=== PATIENT | female | born 1995 | race Caucasian/White ===

== ENCOUNTER 2018-12-12 15:45 | Emergency (ER) | payer MEDICAID, OTHER ==
[2018-12-12 15:48] VITALS: BMI 17.6
[2018-12-12] MEDS ORDERED: Sodium Chloride 0.9% 1,000 ML IV STA (15:59)
--- NOTE | 2018-12-12 16:14 | ED PDOC ---
Arrival/HPI - General Chief Complaint: GI Problem Time Seen by Provider: 12/12/18 15:49 Historian: Patient - History of Present Illness Narrative History of Present Illness (Text): 12/12/18 17:11 23 y/o female with no significant PMH presents to the ED c/o abdominal pain x 4 hours. Associated nausea, vomiting, and diarrhea. Approx 8-9 episodes of nonbloody vomiting and diarrhea since onset of symptoms this morning. Abdominal pain is generalized and sharp, worse in RLQ and periumbilically. No recent antibiotic use, changes in diet, sick contacts, or travel. Denies fever, chills, chest pain, SOB, urinary symptoms, hematemesis, hematochezia, melena, back pain, vaginal bleeding or discharge, or any other associated symptoms. Past Medical History - Provider Review Nursing Documentation Reviewed: Yes - Infectious Disease Hx of Infectious Diseases: None - Psychiatric Hx Substance Use: No - Anesthesia Hx Anesthesia: No Family/Social History - Physician Review Nursing Documentation Reviewed: Yes Family/Social History: No Known Family HX Smoking Status: Never Smoked Hx Alcohol Use: No Hx Substance Use: No Allergies/Home Meds Allergies/Adverse Reactions: Allergies No Known Allergies Allergy (Verified 12/12/18 15:53) Home Medications: Home Meds Medication Instructions Recorded Confirmed No Known Home Med 12/12/18 12/12/18 Review of Systems - Review of Systems Constitutional: Normal Eyes: Normal ENT: Normal. absent: Sore Throat, Sinus Congestion Respiratory: Normal. absent: SOB, Cough Cardiovascular: Normal. absent: Chest Pain, Palpitations, Syncope Gastrointestinal: Abdominal Pain, Stool Changes, Diarrhea, Nausea, Vomiting, Appetite Changes. absent: Hematochezia, Hematemesis Genitourinary Female: Normal. absent: Dysuria, Frequency, Hematuria, Vaginal Bleeding, Vaginal Discharge Musculoskeletal: Normal. absent: Back Pain, Neck Pain Skin: Normal. absent: Rash Neurological: Normal. absent: Headache, Dizziness Physical Exam Vital Signs Reviewed: Yes Vital Signs Temp Pulse Resp BP Pulse Ox 12/12/18 15:58 97.8 F 75 18 100/74 99 Temperature: Afebrile Blood Pressure: Normal Pulse: Regular Respiratory Rate: Normal Appearance: Positive for: Well-Appearing, Non-Toxic, Comfortable Pain Distress: None Mental Status: Positive for: Alert and Oriented X 3 - Systems Exam Head: Present: Atraumatic, Normocephalic Pupils: Present: PERRL Extroacular Muscles: Present: EOMI Conjunctiva: Present: Normal Mouth: Present: Moist Mucous Membranes Neck: Present: Normal Range of Motion. No: Meningeal Signs Respiratory/Chest: Present: Clear to Auscultation, Good Air Exchange. No: Respiratory Distress, Accessory Muscle Use Cardiovascular: Present: Regular Rate and Rhythm, Normal S1, S2, Peripheal Pulses Present Abdomen: Present: Tenderness (generalized, worse in RLQ, periumbilically ), Normal Bowel Sounds, McBurney's Point Tender. No: Distention, Peritoneal Signs, Rebound Back: Present: Normal Inspection. No: CVA Tenderness Upper Extremity: Present: Normal Inspection, Normal ROM, NORMAL PULSES, Neurovascularly Intact, Capillary Refill < 2s. No: Cyanosis, Edema, Temperature Abnormalties Lower Extremity: Present: Normal Inspection, NORMAL PULSES, Normal ROM, Neurovascularly Intact, Capillary Refill < 2 s. No: Edema, Temperature Abnormalties Neurological: Present: GCS=15, CN II-XII Intact, Speech Normal, Motor Func Grossly Intact, Normal Sensory Function, Gait Normal Skin: Present: Warm, Dry, Normal Color. No: Rashes Psychiatric: Present: Alert, Oriented x 3, Normal Insight, Normal Concentration, Normal Affect, Normal Mood Medical Decision Making ED Course and Treatment: 12/12/18 17:01 Initial Plan: * CBC, CMP * Coags * Lipase * UA * IVF * Pepcid * Zofran * Toradol Father and patient would like to wait for bloodwork and re-evaluate before pursuing imaging. 18:11 Bloodwork reviewed, significant for leukocytosis at 15.9 with left shift. UA negative Patient reports improvement in symptoms with medication. Spoke with father and patient, advised CT with PO and IV contrast. Father and patient agree, CT ordered to rule out appendicitis. 19:30 Patient care endorsed to RELL Balbuena, pending CT Abd/Pelvis with PO and IV contrast, Reassessment and Disposition. Patient informed of change in provider. Resting comfortably in stretcher in NAD, VSS at this time. - Lab Interpretations Lab Results: 12/12/18 16:55 12/12/18 16:55 Lab Results 12/12/18 16:55: Sodium 141, Potassium 4.2, Chloride 105, Carbon Dioxide 21, Anion Gap 19, BUN 14, Creatinine 0.5 L, Est GFR ( Amer) > 60, Est GFR (Non-Af Amer) > 60, Random Glucose 88, Calcium 10.2, Phosphorus 4.0, Magnesium 2.3 H, Total Bilirubin 0.6, AST 27, ALT 11, Alkaline Phosphatase 76, Total Protein 9.2 H, Albumin 5.3 H, Globulin 3.9, Albumin/Globulin Ratio 1.4, Lipase 1 48 12/12/18 16:55: Urine Color Yellow, Urine Appearance Clear, Urine pH 5.5, Ur Specific [place] >= 1.030, Urine Protein Negative, Urine Glucose (UA) Negative, Urine Ketones Negative, Urine Blood Negative, Urine Nitrate Negative, Urine Bilirubin Negative, Urine Urobilinogen 0.2, Ur Leukocyte Esterase Negative 12/12/18 16:55: PT 13.4 H, INR 1.21, APTT 28.2 12/12/18 16:55: WBC 15.9 H, RBC 4.88, Hgb 14.6, Hct 44.5, MCV 91.2, MCH 29.9, MCHC 32.8, RDW 13.2, Plt Count 339, MPV 10.7, Neut % (Auto) 89.9 H, Lymph % (Auto) 4.9 L, [place] % (Auto) 4.0, Eos % (Auto) 1.0 L, Baso % (Auto) 0.2, Lymph # (Auto) 0.8 L, [place] # (Auto) 0.6, Eos # (Auto) 0.0, Baso # (Auto) 0.03, Absolute Neuts (auto) 14.45 H, Neutrophils % (Manual) Pending, Lymphocytes % (Manual) Pending, Monocytes % (Manual) Pending I have reviewed the lab results: Yes - Medication Orders Current Medication Orders: Sodium Chloride (Sodium Chloride 0.9%) 1,000 mls @ 999 mls/hr IV .Q1H1M STA Stop: 12/12/18 16:59 Discontinued Medications Famotidine (Pepcid) 20 mg PO STAT STA Stop: 12/12/18 16:00 Ketorolac Tromethamine (Toradol) 15 mg IVP STAT STA Stop: 12/12/18 16:00 Ondansetron HCl (Zofran Inj) 4 mg IVP STAT STA Stop: 12/12/18 16:00 - Transfer of Care Patient signed out to Dr:: Ofelia Balbuena PA-C Pending Radiology Studies:: CT Abd/Pelvis with IV and PO contrast Other: Reassessment and Disposition Disposition/Present on Arrival - Present on Arrival Any Indicators Present on Arrival: No History of DVT/PE: No History of Uncontrolled Diabetes: No Urinary Catheter: No History of Decub. Ulcer: No History Surgical Site Infection Following: None - Disposition Have Diagnosis and Disposition been Completed?: No Diagnosis: Abdominal pain, Nausea vomiting and diarrhea Disposition Time: 19:30 Patient Problems: Current Active Problems Problem Status Onset Abdominal pain Acute Nausea vomiting and diarrhea Acute Condition: STABLE Forms: [employer] (Slovenian)
[2018-12-12 17:15] LABS: PH,URINE 5.5 (4.7-8.0); URINE BILIRUBIN NEGATIVE (NEGATIVE); URINE BLOOD NEGATIVE (NEGATIVE); URINE GLUCOSE (UA) NEGATIVE (NEGATIVE); URINE LEUKOCYTE ESTERASE NEGATIVE Leu/uL (NEGATIVE); URINE UROBILINOGEN 0.2 E.U./dL (<1 E.U./dL)
[2018-12-12 17:17] LABS: URINE APPEARANCE CLEAR (CLEAR); URINE COLOR YELLOW (YELLOW); URINE PROTEIN NEGATIVE mg/dL (<30 mg/dL)
[2018-12-12 17:19] LABS: INR 1.21; PARTIAL THROMBOPLASTIN TIME 28.2 Seconds (26.9-38.3); PROTHROMBIN TIME 13.4 SECONDS (9.4-12.5)
[2018-12-12 17:25] LABS: ALB/GLOB RATIO 1.4 (1.1-1.8); ALBUMIN 5.3 g/dL (3.0-4.8); ALT/SGPT 11 U/L (7-56); AST/SGOT 27 U/L (14-36); BLOOD UREA NITROGEN 14 mg/dL (7-21); CALCIUM 10.2 mg/dL (8.4-10.5); GFR NON-AFRICAN AMERICAN > 60; LIPASE 148 U/L (23-300)
[2018-12-12 17:53] LABS: BASO # 0.03 K/mm3 (0.0-2.0); BASO % 0.2 % (0.0-3.0); HEMOGLOBIN 14.6 g/dL (12.0-16.0); LYMPH # 0.8 (1.2-3.4); LYMPH % 4.9 % (22.0-35.0); MEAN CELL VOLUME 91.2 fl (80.0-105.0); MEAN CORPUSCULAR HEMOGLOBIN 29.9 pg (25.0-35.0); MEAN CORPUSCULAR HGB CONC 32.8 g/dl (31.0-37.0); MEAN PLATELET VOLUME 10.7 fl (7.0-11.0); MONO # 0.6 (0.1-0.6); PLATELET COUNT 339 10^3/uL (120.0-450.0); RBC 4.88 10^6/uL (3.5-6.1); RED CELL DISTRIBUTION WIDTH 13.2 % (11.5-14.5); WHITE BLOOD COUNT 15.9 10^3/uL (4.5-11.0)
[2018-12-12 18:16] VITALS: O2SAT 100
[2018-12-12] MEDS ORDERED: Iohexol 240 (50 ml) ONE (18:28)
[2018-12-12 18:30] LABS: LYMPHOCYTE 6 % (22.0-35.0); MONOCYTE 4 % (1.0-6.0); NEUTROPHIL 90 % (50.0-70.0)
[2018-12-12 18:31] LABS: HYPOCHROMIA 1+; PLATELET ESTIMATE NORMAL (NORMAL); ROULEAU 2+; TOXIC GRANULATION 1+
[2018-12-12] MEDS ORDERED: Iohexol 300 100 ML IJ ONE (20:48)
[2018-12-12 21:17] VITALS: TEMP 98.2
--- NOTE | 2018-12-12 22:01 | ED PDOC ---
Physical Exam Vital Signs Reviewed: Yes Vital Signs Temp Pulse Resp BP Pulse Ox 12/12/18 21:16 98.2 F 94 H 18 101/62 100 12/12/18 18:15 97.8 F 87 18 105/75 100 12/12/18 15:58 97.8 F 75 18 100/74 99 Temperature: Afebrile Blood Pressure: Normal Pulse: Regular Respiratory Rate: Normal Medical Decision Making ED Course and Treatment: 12/12/18 19:30 Case endorsed to me by RELL Garcia. Patient's lab results were reviewed, showing an elevated white count. CT was ordered to rule out Appendicitis. At this time, patient is starting to drink for po contrast. 12/12/18 21:45 On reevaluation, patient returned from CT and reports her pain is controlled at this time, denies nausea and is laying in bed comfortably with no acute distress. CT results pending. 12/12/18 22:06 EXAM: CT Abdomen and Pelvis with IV contrast CLINICAL HISTORY: R/o appendicitis TECHNIQUE: Axial computed tomography images of the abdomen and pelvis with intravenous contrast. 206.65 mGy-cm CONTRAST: With; 33OZ OMNI MIX & OMNI 350 100 ml COMPARISON: None provided. FINDINGS: LUNG BASES: The lung bases appear clear. No pleural effusions are seen. LIVER: Unremarkable. GALLBLADDER AND BILE DUCTS: The gallbladder appears within normal limits. No radioopaque gallstones are seen. No biliary ductal dilatation is evident. PANCREAS: Unremarkable. SPLEEN: Unremarkable. ADRENAL GLANDS: Unremarkable. KIDNEYS, URETERS, AND BLADDER: The kidneys appear within normal limits. There is no hydronephrosis or hydroureter. No urinary calculi are seen. STOMACH AND BOWEL: Thick walled fluid filled duodenum and loops of jejunum as well as ileum compatible with enteritis. Thick walled fluid filled colon is noted with involvement of all segments compatible with diffuse pancolitis. APPENDIX: Appendix is not identified. There is no evidence of acute appendicitis. PERITONEUM: No free fluid. No free air. LYMPH NODES: No lymphadenopathy is evident. REPRODUCTIVE: Unremarkable as visualized. VASCULATURE: No evidence of abdominal aortic aneurysm. BONES: No aggressive appearing osseous lesion. No acute osseous pathology evident. IMPRESSION: Enterocolitis. Infectious and inflammatory etiologies are considered. Appendix is not identified. There is no evidence of acute appendicitis. Electronically signed on Dec 12, 2018 9:52:00 PM EDT by: Tha Logan M.D., N[place] Certified By [facility] Fellowship Trained MRI and CT Specialist 12/12/18 22:15 On reevaluation, patient remains awake alert and oriented 3 in no acute distress, patient is smiling, is in good spirits, states that she feels ready to go home. Abdomen soft and nontender, no rebound or guarding. CT results d/w the patient and her family. Cipro and flagyl IV ordered. Advised to follow up with primary care physician in 1-2 days without fail. Advised to take medication as prescribed. Return to the emergency room at any time for any new or worsening symptoms. Patient states she fully agrees with and understands discharge instructions. States that she agrees with the plan and disposition. Verbalized and repeated sierra sandoval instructions and plan. I have given the patient opportunity to ask any additional questions. - Lab Interpretations Lab Results: PT 13.4 SECONDS (9.4-12.5) H 12/12/18 16:55 INR 1.21 12/12/18 16:55 APTT 28.2 Seconds (26.9-38.3) 12/12/18 16:55 Total Bilirubin 0.6 mg/dL (0.2-1.3) 12/12/18 16:55 AST 27 U/L (14-36) 12/12/18 16:55 ALT 11 U/L (7-56) 12/12/18 16:55 Alkaline Phosphatase 76 U/L (38-126) 12/12/18 16:55 Total Protein 9.2 g/dL (5.8-8.3) H 12/12/18 16:55 Albumin 5.3 g/dL (3.0-4.8) H 12/12/18 16:55 Globulin 3.9 gm/dL 12/12/18 16:55 Albumin/Globulin Ratio 1.4 (1.1-1.8) 12/12/18 16:55 Lipase 148 U/L (23-300) 12/12/18 16:55 Urine Color Yellow (YELLOW) 12/12/18 16:55 Urine Appearance Clear (CLEAR) 12/12/18 16:55 Urine pH 5.5 (4.7-8.0) 12/12/18 16:55 Ur Specific [place] >= 1.030 (1.005-1.035) 12/12/18 16:55 Urine Protein Negative mg/dL (<30 mg/dL) 12/12/18 16:55 Urine Glucose (UA) Negative mg/dL (NEGATIVE) 12/12/18 16:55 Urine Ketones Negative mg/dL (NEGATIVE) 12/12/18 16:55 Urine Blood Negative (NEGATIVE) 12/12/18 16:55 Urine Nitrate Negative (NEGATIVE) 12/12/18 16:55 Urine Bilirubin Negative (NEGATIVE) 12/12/18 16:55 Urine Urobilinogen 0.2 E.U./dL (<1 E.U./dL) 12/12/18 16:55 Ur Leukocyte Esterase Negative Sybil/uL (NEGATIVE) 12/12/18 16:55 - RAD Interpretation Radiology Orders: 12/12/18 18:05 ABD PELVIS PO & IV CONTRAST [CT] Stat - Medication Orders Current Medication Orders: Discontinued Medications Famotidine (Pepcid) 20 mg IVP STAT STA Stop: 12/12/18 17:04 Last Admin: 12/12/18 17:11 Dose: 20 mg IVP Administration Document 12/12/18 17:11 [place] (Rec: 12/12/18 17:12 [id number] Charges for Administration # of IVP Administrations 1 Sodium Chloride (Sodium Chloride 0.9%) 1,000 mls @ 999 mls/hr IV .Q1H1M STA Stop: 12/12/18 16:59 Last Admin: 12/12/18 17:11 Dose: 999 mls/hr eMAR Start Stop Document 12/12/18 17:11 LA (Rec: 12/12/18 17:11 [id number] Intravenous Solution Start Date 12/12/18 Start Time 17:11 End Date 12/12/18 End time 18:12 Total Infusion Time 61 Ketorolac Tromethamine (Toradol) 15 mg IVP STAT STA Stop: 12/12/18 16:00 Last Admin: 12/12/18 17:12 Dose: 15 mg MAR Pain Assessment Document 12/12/18 17:12 LA (Rec: 12/12/18 17:12 [id number] Pain Reassessment Is this a pain reassessment? No Sleep Is patient sleeping during reassessment? No Presence of Pain Presence of Pain Yes Pain Scale Used Protocol: PSCALES Pain Scale Used Numeric Location Pain Location Body Site Abdomen IVP Administration Document 12/12/18 17:12 LA (Rec: 12/12/18 17:12 [id number] Charges for Administration # of IVP Administrations 1 Re-Assess: NATHALIE Pain Assessment Document 12/12/18 18:12 LA (Rec: 12/12/18 21:22 [place] [id number]) Pain Reassessment Is this a pain reassessment? Yes Sleep Is patient sleeping during reassessment? No Presence of Pain Presence of Pain Yes Description Intensity of Pain at present 2 Ondansetron HCl (Zofran Inj) 4 mg IVP STAT STA Stop: 12/12/18 16:00 Last Admin: 12/12/18 17:11 Dose: 4 mg IVP Administration Document 12/12/18 17:11 LA (Rec: 12/12/18 17:11 [id number] Charges for Administration # of IVP Administrations 1 - PA / WET PROCESS ASSISTANT HEAD MILLER / Resident Statement MD/DO has reviewed & agrees with the documentation as recorded. Disposition/Present on Arrival - Present on Arrival Any Indicators Present on Arrival: No History of DVT/PE: No History of Uncontrolled Diabetes: No Urinary Catheter: No History of Decub. Ulcer: No History Surgical Site Infection Following: None - Disposition Have Diagnosis and Disposition been Completed?: Yes Diagnosis: Abdominal pain, Nausea vomiting and diarrhea, Enterocolitis Disposition: HOME/ ROUTINE Disposition Time: 22:30 Patient Plan: Discharge Patient Problems: Current Active Problems Problem Status Onset Abdominal pain Acute Nausea vomiting and diarrhea Acute Enterocolitis Acute Condition: STABLE Discharge Instructions (ExitCare): Acute Abdomen (Belly Pain), Colitis (DC) Additional Instructions: Thank you for letting us take care of you today. You were treated for abdominal pain, enterocolitis. The emergency medical care you received today was directed at your acute symptoms. If you were prescribed any medication, please fill it and take as directed. It may take several days for your symptoms to resolve. Return to the Emergency Department if your symptoms worsen, do not improve, or if you have any other problems. Please contact your doctor (Dr. Wilson) in 2 days for re-evaluation and follow up. Bring any paperwork you were given at discharge with you along with any medications you are taking to your follow up visit. Our treatment cannot replace ongoing medical care by a primary care provider (PCP) outside of the emergency department. Thank you for allowing the [facility] team to be part of your care today. If you had a CT scan: Another Radiologist will review the ED overnight reading if any change in treatment is needed we will contact you. Prescriptions: Ciprofloxacin [Cipro] 500 mg PO BID #14 tab metroNIDAZOLE [Flagyl] 500 mg PO TID #21 tab Forms: [employer] (Italian), SCHOOL NOTE
[2018-12-12] MEDS ORDERED: Ciprofloxacin 400mg/200ml D5W 400 MG/200 ML BAG IVPB STA (22:13)
[2018-12-12] MEDS ORDERED: metroNIDAZOLE IV 500 mg/100 ml 500 MG/100 ML BAG IVPB STA (22:13)
[2018-12-13] MEDS ORDERED: TDAP Vaccine 0.5 mL Syr IM ONE (00:23)
[2018-12-13 02:15] VITALS: BP 100/58; PULSE 72; RESP 17
--- NOTE | 2018-12-13 09:16 | CARD ---
APPROVED REPORT Date of service: 12/13/2018 EKG Measurement Heart [id number] <Conclusion> Normal sinus rhythm Normal ECG
--- NOTE | 2018-12-13 09:33 | CT ---
Date of service: 12/13/2018 PROCEDURE: CT HEAD WITHOUT CONTRAST. HISTORY: Fall, trauma COMPARISON: None available. TECHNIQUE: Axial computed tomography images were obtained through the head/brain without intravenous contrast. Radiation dose: Total exam DLP = 663.98 mGy-cm. This CT exam was performed using one or more of the following dose reduction techniques: Automated exposure control, adjustment of the mA and/or kV according to patient size, and/or use of iterative reconstruction technique. FINDINGS: Study is limited by motion artifact HEMORRHAGE: No acute parenchymal, subarachnoid or extra-axial hemorrhage. BRAIN: No mass effect or edema. No atrophy or chronic microvascular ischemic changes. VENTRICLES: No obstructive hydrocephalus. CALVARIUM: Unremarkable. PARANASAL SINUSES: Minor mucosal thickening seen in the few 1 or 2 left-sided ethmoid air cells MASTOID AIR CELLS: Unremarkable as visualized. No inflammatory changes. OTHER FINDINGS: None. IMPRESSION: Slightly limited motion degraded study. No acute intracranial hemorrhage or large acute infarct seen.
--- NOTE | 2018-12-13 12:18 | CT ---
Date of service: 12/12/2018 PROCEDURE: CT Abdomen and Pelvis with contrast HISTORY: r/o appendicitis COMPARISON: None. TECHNIQUE: Contrast dose: 100 mL Omnipaque 350 Radiation dose: Total exam DLP = 206.65 mGy-cm. This CT exam was performed using one or more of the following dose reduction techniques: Automated exposure control, adjustment of the mA and/or kV according to patient size, and/or use of iterative reconstruction technique. FINDINGS: LOWER THORAX: Unremarkable. LIVER: Unremarkable. No gross lesion or ductal dilatation. GALLBLADDER AND BILE DUCTS: Unremarkable. PANCREAS: Unremarkable. No gross lesion or ductal dilatation. SPLEEN: Unremarkable. ADRENALS: Unremarkable. No mass. KIDNEYS AND URETERS: Unremarkable. No hydronephrosis. No solid mass. VASCULATURE: Unremarkable. No aortic aneurysm. No aortic atherosclerotic calcification or mural plaque present. BOWEL: Stomach markedly distended with air and enteric contrast. Colon distended with liquid feces. No obstruction. No gross mural thickening. APPENDIX: Normal appendix. PERITONEUM: Unremarkable. No free fluid. No free air. LYMPH NODES: Unremarkable. No enlarged lymph nodes. BLADDER: Unremarkable. REPRODUCTIVE: Involuting left corpus luteal follicle. BONES: No acute fracture. OTHER FINDINGS: None. IMPRESSION: No evidence of acute appendicitis. Markedly distended stomach with air and enteric contrast. Colon distended with liquid feces. Findings may be related to an underlying dysmotility disorder. Clinical correlation is recommended. No evidence of bowel wall thickening.
== END 2018-12-13 02:16 | disposition left against medical advice (07) ==
LOC: ED 15:45
DX: K52.9 Noninfective gastroenteritis and colitis, unspecified (principal)
CPT/HCPCS: 70450; 74177; 80053; 81003; 81025; 82948; 83690; 83735; 84100; 85025; 85610; 85730; 90471; 90715; 93005; 96361; 96374; 96375; 99285; J0744; J1885; J2405; J7030; Q9966; Q9967